=== PATIENT | male | born 1980 | race Caucasian/White ===

== ENCOUNTER 2023-12-15 13:19 | Day surgery (SDC) | payer OTHER ==
[~2023-12-15] VITALS: Ht 185.4 cm; Wt 99.2 kg
[~2023-12-15 13:19] MED LIST: LR 1,000 ML IV SCH; Ondansetron 4 MG/2 ML VIAL IV PRN
[2023-12-15 14:17] VITALS: BP 118/89; PULSE 70; TEMP 98.3
[2023-12-15 15:05] VITALS: BP 113/74; PULSE 70; TEMP 98.3
--- NOTE | 2023-12-15 15:19 | NUR ---
Patient returns from [facility] via cart at 1505. VSS. Denies complaints. Ambulates to recliner with assistance x2. Water, crackers, cheese, and pudding given. at bedside. Call light within reach.
--- NOTE | 2023-12-15 16:28 | NUR ---
Discharge instructiosn reviewed at 1524. INT removed at 1543. Dr. Madsen in room to talk with pt and at 1610. Pt discharges to wifes car at 1615 via w/c. Denies complaints at that time.
== END 2023-12-15 16:15 | disposition home or self-care (01) ==
LOC: SDCO 13:19
DX: Z12.11 Encounter for screening for malignant neoplasm of colon (principal); K57.30 Diverticulosis of large intestine without perforation or abscess without bleeding
CPT/HCPCS: J2704; J7120